=== PATIENT | female | born 1945 ===

== ENCOUNTER → 2022-04-03 | Outpatient (REF) | payer MEDICARE, OTHER ==
[2022-04-03 12:28] LABS: BLOOD UREA NITROGEN 14 MG/DL (7-18); CREATININE FOR GFR 0.68 MG/DL (0.55-1.30); GLOMERULAR FILTRATION RATE > 60.0 (>39)
== END ==
LOC: M LABDRAWC 11:48
PROVIDERS: ATTEND Internal Medicine Gastroenterology
DX: K86.2 Cyst of pancreas (principal)